=== PATIENT | female | born 1980 | race African-American/Black ===

== ENCOUNTER 2019-05-30 03:05 | Emergency (ER) | payer MEDICAID ==
[~2019-05-30] VITALS: Ht 165.1 cm; Wt 62.0 kg
[2019-05-30] MEDS ORDERED: SODIUM CHLORIDE 0.9% 1,000 ML IV ONE (05:54)
[2019-05-30] MEDS ORDERED: ONDANSETRON HCL 4MG/2ML INJ IV STA (05:54)
[2019-05-30] MEDS ORDERED: KETOROLAC 30MG/ML VIAL IV STA (05:54)
[2019-05-30 06:15] LABS: BASOPHILS % 1.1 % (0.0-2.0); EOSINOPHILS % 1.5 % (0.0-5.0); HEMATOCRIT. 38.4 % (36.0-48.0); HEMOGLOBIN. 12.9 g/dL (12.0-16.0); LYMPHOCYTES % 38.9 % (20.0-50.0); MEAN CORPUSCULAR HEMOGLOBIN 29.6 pg (28.0-32.0); MEAN PLATELET VOLUME 8.6 fl (7.4-10.4); MONOCYTES % 8.9 % (2.0-8.0); NEUTROPHILS % 49.6 % (40.0-76.0); PLATELET 256 x1000/uL (130-400); RED BLOOD CELL COUNT 4.37 mill/uL (4.2-5.4); RED CELL DISTRIBUTION WIDTH 15.6 % (11.6-14.6)
[2019-05-30 06:22] LABS: CHLORIDE 108 mEq/L (98-107)
[2019-05-30 06:23] LABS: PROTHROMBIN TIME 10.1 sec (9.6-11.0)
[2019-05-30 06:26] LABS: HCG SCREEN NEGATIVE
[2019-05-30 07:03] LABS: CLARITY URINE CLEAR (CLEAR); COLOR URINE YELLOW (YELLOW); KETONES URINE NEGATIVE (NEGATIVE); LEUKOCYTE ESTERASE URINE NEGATIVE (NEGATIVE); NITRITE URINE NEGATIVE (NEGATIVE); OCCULT BLOOD URINE NEGATIVE (NEGATIVE); PH URINE 6.5 (4.5-8.0); PROTEIN URINE NEGATIVE (NEGATIVE); SPECIFIC GRAVITY URINE 1.023 (1.005-1.030)
[2019-05-30] MEDS ORDERED: HYDROCODONE/ACETAMINOPHEN 5/325MG TABLET PO STA (07:05)
[2019-05-30] MEDS ORDERED: BACITRACIN ZINC OINT UDPKT TOP ONE (08:30)
[2019-05-30] MEDS ORDERED: CEFTRIAXONE SODIUM 250 MG/VIAL IM ONE (08:45)
[2019-05-30] MEDS ORDERED: AZITHROMYCIN 500 MG TABLET PO ONE (08:45)
[2019-05-30 09:10] VITALS: BP 109/74
[2019-06-02 04:09] LABS: CHLAMYDIA TRACHOMATIS NAA Negative (Negative); NEISSERIA GONORRHOEAE NAA Negative (Negative)
== END 2019-05-30 09:15 | disposition home or self-care (01) ==
LOC: ER 03:05
DX: R10.2 Pelvic and perineal pain (principal)
CPT/HCPCS: 36415; 76830; 76856; 80053; 81003; 83690; 84703; 85025; 85610; 87210; 87491; 87591; 96374; 96375; 99284; J1885; J2405; J7030; Z7610

== ENCOUNTER 2019-06-16 16:06 | Emergency (ER) | payer MEDICAID ==
[~2019-06-16] VITALS: Ht 154.9 cm; Wt 54.0 kg
[2019-06-16 16:30] VITALS: BP 117/59
== END 2019-06-16 17:34 | disposition home or self-care (01) ==
LOC: ER 16:06
DX: L29.9 Pruritus, unspecified (principal); W57.XXXA Bitten or stung by nonvenomous insect and other nonvenomous arthropods, initial encounter; Y93.E9 Activity, other interior property and clothing maintenance; Y92.9 Unspecified place or not applicable; Z88.6 Allergy status to analgesic agent
CPT/HCPCS: 99282